=== PATIENT | female | born 1975 | race Caucasian/White ===

== ENCOUNTER 2019-02-20 16:13 | Emergency (ER) | payer MEDICAID ==
[~2019-02-20] VITALS: Ht 157.5 cm; Wt 58.5 kg
[2019-02-20 16:27] VITALS: BP_SYST 163
[2019-02-20] MEDS ORDERED: IBUPROFEN 600 MG TABLET PO ONE (16:45)
[2019-02-20 16:56] VITALS: BP_SYST 163
== END 2019-02-20 16:56 | disposition home or self-care (01) ==
LOC: SED 16:13
DX: S93.402A Sprain of unspecified ligament of left ankle, initial encounter (principal); R03.0 Elevated blood-pressure reading, without diagnosis of hypertension; Z88.0 Allergy status to penicillin; W19.XXXA Unspecified fall, initial encounter; Y93.01 Activity, walking, marching and hiking; Y92.89 Other specified places as the place of occurrence of the external cause; Y99.8 Other external cause status
CPT/HCPCS: 99283

== ENCOUNTER 2021-08-08 23:59 | Emergency (ER) | payer MEDICAID ==
[~2021-08-08] VITALS: Ht 157.5 cm; Wt 54.4 kg
[2021-08-09 00:05] VITALS: BP_SYST 141
--- NOTE | 2021-08-09 00:13 | NUR ---
Patient to ER bed 7 to gown for evaluation. Side rails up. Report given to Francesca MENARD.
--- NOTE | 2021-08-09 00:18 | NUR ---
ER Dr. Miller at bedside examining patient.
--- NOTE | 2021-08-09 00:19 | NUR ---
ER at bedside examining patient.
--- NOTE | 2021-08-09 00:22 | NUR ---
Assumed total care of patient. Patient AAO x4 from home c/o bilateral foot pain/cramping since May. Patient has been seeing her primary care doctor and has not been compliant with her medications. Patient hx of diabetes. Patient VSS, breathing even and unlabored, no signs of acute distress noted. Daughter at bedside.
[2021-08-09] MEDS ORDERED: DIPH-TET-PERTUS Vaccine 0.5 ML VIAL (ADACEL) I.M. ONE (00:30)
[2021-08-09] MEDS ORDERED: KETOROLAC TROMETHAMINE 30 MG VIAL IM ONE (00:30)
[2021-08-09] MEDS ORDERED: HYDROcodone/ACETAMIN 10-325 MG TAB PO ONE (00:30)
--- NOTE | 2021-08-09 00:40 | NUR ---
Lab at bedside drawing blood
[2021-08-09 01:00] LABS: CALCIUM 8.9 mg/dL (8.4-11.0); CREATININE 0.58 mg/dL (0.55-1.30); POTASSIUM 3.6 mmol/L (3.5-5.1)
[2021-08-09 01:09] LABS: TOTAL BILIRUBIN 0.2 mg/dL (0.0-1.0)
--- NOTE | 2021-08-09 01:30 | NUR ---
Patient reports pain decreased to a 2/10 and is feeling much relief from medications. Patient will be accompanied by daughter for a ride home.
[2021-08-09] MEDS ORDERED: HYDR-3917 PO (02:35)
[2021-08-09 02:45] VITALS: BP_SYST 136
--- NOTE | 2021-08-09 02:45 | NUR ---
Patient given written and verbal discharge instructions and verbalizes understanding. ER MD discussed with patient the results and treatment provided. Patient in stable condition. ID arm band removed. NO IV Rx of norco given. Patient educated on pain management and to follow up with PMD. Pain Scale 0/10. Opportunity for questions provided and answered. Medication side effect fact sheet provided.
== END 2021-08-09 02:45 | disposition home or self-care (01) ==
LOC: SED 23:59
DX: G62.9 Polyneuropathy, unspecified (principal); M79.671 Pain in right foot; M79.672 Pain in left foot; Z88.0 Allergy status to penicillin
CPT/HCPCS: 36415; 80053; 83735; 90471; 90715; 96372; 99284; J1885